=== PATIENT | female | born 1990 ===

== ENCOUNTER 2021-04-17 05:12 | Emergency (ER) | payer OTHER ==
[2021-04-17 06:11] VITALS: BP 128/77
[2021-04-17] MEDS ORDERED: KETOROLAC 30 MG/1 ML INJ IV ONE (06:24)
[2021-04-17] MEDS ORDERED: ONDANSETRON 4 MG/2 ML INJ IV ONE (06:24)
[2021-04-17] MEDS ORDERED: SODIUM CHLORIDE 0.9% 1000 ML 1,000 ML IV ONE (06:24)
--- NOTE | 2021-04-17 06:25 | Emergency Department Report ---
ED Abdominal Pain HPI - General Chief Complaint: Abdominal Pain Stated Complaint: ABD PAIN PUI?: No Time Seen by Provider: 04/17/21 06:14 Source: patient Mode of arrival: Ambulatory Limitations: No Limitations - History of Present Illness Initial Comments: 30-year-old female presents to the ER today with complaints of upper abdominal pain. Patient states that she has been having this pain off and on for the past 3 months but last night got severely worse. She states that the pain is now more epigastric and right upper quadrant. She states that last night she vomited twice and had 2 episodes of diarrhea but she has remained nauseous and she has felt dizzy off and on since last night. She is unable to describe any modifying factors. She denies any associated chest pain or shortness of breath. She denies any fever chills or UTI symptoms. She denies any abnormal vaginal symptoms. She states that she just had a baby 3 months ago and has not had a menstrual cycle as yet because she is breast-feeding. She states that she is concerned that this could be related to her gallbladder as her sister had similar symptoms. Only abdominal surgery she has had was a in the past. MD Complaint: abdominal pain -: Gradual, month(s) - Related Data Previous Rx's Medication Instructions Recorded Last Taken Type Ondansetron [Zofran Odt] 4 mg PO Q8HR #15 tab.rapdis 04/17/21 Unknown Rx traMADoL [Ultram] 50 mg PO Q4HR PRN #10 tablet 04/17/21 Unknown Rx Allergies Allergy/AdvReac Type Severity Reaction Status Date / Time No Known Allergies Allergy Verified 04/17/21 06:11 ED Review of Systems ROS: Stated complaint: ABD PAIN Other details as noted in HPI Comment: All other systems reviewed and negative Constitutional: denies: chills, fever Eyes: denies: eye pain, eye discharge, vision change ENT: denies: ear pain, throat pain Respiratory: denies: cough, shortness of breath, wheezing Cardiovascular: denies: chest pain, palpitations Gastrointestinal: abdominal pain, nausea, vomiting, diarrhea. denies: constipation, hematemesis, melena, hematochezia Genitourinary: denies: urgency, dysuria, frequency, hematuria, discharge, abnor mal menses, dyspareunia Musculoskeletal: denies: back pain, joint swelling, arthralgia Skin: denies: rash, lesions, change in color, change in hair/nails, pruritus Neurological: denies: headache, weakness, numbness, paresthesias, confusion, abnormal gait, vertigo Psychiatric: denies: anxiety, depression, auditory hallucinations, visual hallucinations, homicidal thoughts, suicidal thoughts Hematological/Lymphatic: denies: easy bleeding, easy bruising, swollen glands ED Past Medical Hx - Past Medical History Previous Medical History?: No - Surgical History Past Surgical History?: Yes Additional Surgical History: c section - Medications Home Medications: Home Medications Medication Instructions Recorded Confirmed Last Taken Type Ondansetron [Zofran Odt] 4 mg PO Q8HR #15 tab.rapdis 04/17/21 Unknown Rx traMADoL [Ultram] 50 mg PO Q4HR PRN #10 tablet 04/17/21 Unknown Rx ED Physical Exam - General Limitations: No Limitations General appearance: alert, in distress (MILD, SECONDARY TO PAIN) - Head Head exam: Present: atraumatic, normocephalic, normal inspection - Eye Eye exam: Present: normal appearance, PERRL, EOMI Pupils: Present: normal accommodation - Neck Neck exam: Present: normal inspection, full ROM. Absent: meningismus - Respiratory Respiratory exam: Present: normal lung sounds bilaterally. Absent: respiratory distress, wheezes, rales, rhonchi - Cardiovascular Cardiovascular Exam: Present: regular rate, normal rhythm, normal heart sounds - GI/Abdominal GI/Abdominal exam: Present: soft, tenderness (moderate RUQ with mild guarding and a positive Newman's). Absent: distended, rebound, rigid - Neurological Exam Neurological exam: Present: alert, oriented X3, CN II-XII intact, normal gait - Psychiatric Psychiatric exam: Present: normal affect, normal mood - Skin Skin exam: Present: intact ED Course Vital Signs 04/17/21 06:10 Temperature 97.6 F Pulse Rate 72 Respiratory 19 Rate Blood Pressure 128/77 [Left] O2 Sat by Pulse 99 Oximetry ED Medical Decision Making - Lab Data Result diagrams: 04/17/21 07:09 04/17/21 07:09 - Radiology Data Radiology results: report reviewed Patient: JAI HUNTER MR#: [id number] [birth year] : 1990 Acct:[id number] Age/Sex: 30 / F ADM Date: 04/17/21 Loc: ED Attending Dr: Ordering Physician: LISA ROJAS Date of Service: 04/17/21 Procedure(s): US abdomen limited Accession Number(s): [id number] cc: LISA ROJAS LIMITED RUQ ABDOMINAL ULTRASOUND INDICATION: RUQ abd pain. COMPARISON: No relevant prior imaging study available. FINDINGS: Pancreas: Visualized portions show no significant abnormality. Abdominal Aorta: Normal size. IVC: No significant abnormality. Liver: The liver measures 15.4 cm in length. Mildly echogenic appearance compared to the right renal cortex. Normal hepatopedal blood flow in the main portal vein. Gallbladder: Minimal layering cholelithiasis with no inflammatory change identified. Bile ducts: No significant abnormality. Common bile duct measures 2 mm. Right kidney: No significant abnormality visualized.. Free fluid: None. Additional Findings: None. IMPRESSION: 1. Echogenic appearance of the liver, most commonly seen with steatosis. 2. Cholelithiasis without cholecystitis. Signer Name: Edwin Johansen MD Signed: 04/17/2021 7:15 AM Workstation Name: [id number] Transcribed By: LONI Dictated By: Edwin Johansen MD Electronically Authenticated By: Edwin Johansen MD Signed Date/Time: 04/17/21714 DD/ 2 TD/TT: - Medical Decision Making 0903: Patient reports feeling much better after IV fluids, Zofran and Toradol. Repeat abdominal exam shows a soft nontender abdomen. She is currently sitting comfortably in the recliner. She is not toxic, ill-appearing and not in any significant distress. She is neurologically intact with a normal gait All labs reviewed --CBC unremarkable. CMP shows some elevations in her LFTs, but T bili and lipase are normal and the remainder of her CMP unremarkable. Gallbladder ultrasound does show cholelithiasis without any signs of acute cholecystitis. Common bile duct measured at 2 mm. There is also signs of hepatic steatosis. Patient elevated LFTs could be related to the gallstones and also hepatic steatosis. Given the fact that her pain is under control, she is afebrile, she is hemodynamically stable, and her white count is normal, patient will be discharged with instructions to follow-up general surgeon. I do not see an indication for CT abdomen pelvis, nor admission or emergent surgical consult at this time. Patient admits that she has been doing increased fatty foods think that this would help her milk production for her breast-feeding, but inform patient that she will need to decrease her fatty food intake, and a gallbladder eating plan was given to patient on discharge instructions. He was instructed to follow-up with a general surgeon and also the primary care doctor listed on her discharge instructions. Patient expressed understanding of all instructions and agree with plan. Patient stable at time of discharge. Critical care attestation.: If time is entered above; I have spent that time in minutes in the direct care of this critically ill patient, excluding procedure time. ED Disposition Clinical Impression: Cholelithiasis, Hepatic steatosis, Elevated LFTs Disposition: HOME / SELF CARE / HOMELESS Is pt being admited?: No Does the pt Need Aspirin: No Condition: Stable Instructions: Cholelithiasis, [id number], Gallbladder Eating Plan, Fatty Liver Disease, Abdominal Pain (ED) Additional Instructions: Recommend that he take Zofran as needed to help with any nausea or vomiting. Take the ultram to help with any pain as needed. You may want to adjust your breast-feeding cycles if you do take the ultram as this can cause some sleepiness. Recommend pumping before taking the medication or taking the medication after breast-feeding. Most importantly I do recommend that you follow the gallbladder eating plan to adjust your diet until you have your gallbladder removed. Follow-up with the general surgeon listed on your discharge instructions for further evaluation and discussion of possible gallbladder removal. I also recommend follow-up with primary care doctor for continued monitoring of your fatty liver and you elevated liver function tests. Return to the ER if your symptoms worsens and you develop uncontrolled nausea vomiting and fever chills with it. Prescriptions: traMADoL [Ultram] 50 mg PO Q4HR PRN #10 tablet PRN Reason: Pain , Severe (7-10) Ondansetron [Zofran Odt] 4 mg PO Q8HR #15 tab.rapdis Referrals: STEFANIE JASMINE DO [Staff Physician] - 3-5 Days (General Surgeon ) GUY CHANEL MD [Staff Physician] - 3-5 Days (Primary Care physician ) Time of Disposition: 08:57 Print Language: KYRGYZ
[2021-04-17 06:29] LABS: Bacteria,Urine 2+ /HPF (Negative); Bilirubin,Urine NEG (Negative); Blood,Urine NEG (Negative); Color,Urine Yellow (Yellow); Mucus,Urine 3+ /HPF; Protein,Urine <15 mg/dL mg/dL (Negative); Urobilinogen,Urine < 2.0 mg/dL (<2.0)
--- NOTE | 2021-04-17 07:19 | Ultrasound Report ---
LIMITED RUQ ABDOMINAL ULTRASOUND INDICATION: RUQ abd pain. COMPARISON: No relevant prior imaging study available. FINDINGS: Pancreas: Visualized portions show no significant abnormality. Abdominal Aorta: Normal size. IVC: No significant abnormality. Liver: The liver measures 15.4 cm in length. Mildly echogenic appearance compared to the right renal cortex. Normal hepatopedal blood flow in the main portal vein. Gallbladder: Minimal layering cholelithiasis with no inflammatory change identified. Bile ducts: No significant abnormality. Common bile duct measures 2 mm. Right kidney: No significant abnormality visualized.. Free fluid: None. Additional Findings: None. IMPRESSION: 1. Echogenic appearance of the liver, most commonly seen with steatosis. 2. Cholelithiasis without cholecystitis. Signer Name: Edwin Johansen MD Signed: 04/17/2021 7:15 AM Workstation Name: [id number]
[2021-04-17 08:14] LABS: Basophils % (Auto) 0.3 % (0.0-1.8); Eosinophils # (Auto) 0.1 K/mm3 (0.0-0.4); Eosinophils % (Auto) 1.2 % (0.0-4.3); Hematocrit 37.7 % (30.3-42.9); Hemoglobin 12.5 gm/dl (10.1-14.3); Lymphocytes # (Auto) 1.7 K/mm3 (1.2-5.4); Lymphocytes % (Auto) 17.8 % (13.4-35.0); Mean Corpuscular HGB Conc 33 % (30-34); Mean Corpuscular Volume 82 fl (79-97); Monocytes # (Auto) 0.7 K/mm3 (0.0-0.8); Monocytes % (Auto) 7.5 % (0.0-7.3); Platelet Count 281 K/mm3 (140-440); Red Blood Count 4.61 M/mm3 (3.65-5.03); Red Cell Distribution Width 13.7 % (13.2-15.2)
[2021-04-17 08:35] LABS: Alanine Aminotransferase 94 units/L (7-56); Albumin 4.5 g/dL (3.9-5); Bilirubin,Direct 0.3 mg/dL (0-0.2); Blood Urea Nitrogen 11 mg/dL (7-17); Calcium 9.6 mg/dL (8.4-10.2); Hemolysis Index 18
[2021-04-17 08:47] LABS: BUN/Creatinine Ratio 22
== END 2021-04-17 09:05 | disposition home or self-care (01) ==
LOC: ED 05:12
DX: K80.20 Calculus of gallbladder without cholecystitis without obstruction (principal); K76.0 Fatty (change of) liver, not elsewhere classified; R94.5 Abnormal results of liver function studies
CPT/HCPCS: 36415; 76705; 80048; 80076; 81001; 83690; 84703; 85025; 96361; 96374; 96375; 99284; J1885; J2405; J7030; Q0162

== ENCOUNTER 2021-05-19 05:55 | Day surgery (SDC) | payer OTHER ==
[2021-05-19] MEDS ORDERED: LACTATED RINGERS 1,000 ML IV SCH (06:00)
[2021-05-19] MEDS ORDERED: SCOPOLAMINE TRANSDERMAL PATCH 72 HR TD NR (06:00)
[2021-05-19] MEDS ORDERED: GABAPENTIN 300 MG CAP PO NR (06:00)
[2021-05-19] MEDS ORDERED: MIDAZOLAM 2 MG/2 ML INJ IV NR (06:00)
[2021-05-19] MEDS ORDERED: ACETAMINOPHEN 500 MG TAB PO SCH (06:00)
--- NOTE | 2021-05-19 07:20 | Anesthesia Consultation ---
Anesthesia Consult and Med Hx Date of service: 05/19/21 - Airway Anesthetic Teeth Evaluation: Good ROM Head & Neck: Adequate Mental/Hyoid Distance: Adequate Mallampati Class: Class II Intubation Access Assessment: Probably Good - Pre-Operative Health Status ASA Pre-Surgery Classification: ASA2 Proposed Anesthetic Plan: General - Pulmonary Hx Smoking: No Hx Sleep Apnea: No (LISA PRE SCREEN LOW RISK) - Cardiovascular System Hx Hypertension: No - Central Nervous System Hx Psychiatric Problems: No - Endocrine Hx Liver Disease: Yes (Gallbladder disease with h/o elevated liver enzymes) - Hematic Hx Anemia: No Hx Sickle Cell Disease: No - Other Systems Hx Alcohol Use: Yes (OCC. BEER) Hx Substance Use: No Hx Cancer: No - Additional Comments Anesthesia Medical History Comments: Gave 4 month ago.
--- NOTE | 2021-05-19 07:21 | Anesthesia Day of Surgery ---
Anesthesia Day of Surgery - Day of Surgery Patient Examined: Yes Patient H&P Reviewed: Yes Patient is NPO: Yes
[2021-05-19] MEDS ORDERED: ceFAZolin/Water 2 GM/20 ML 2 GM/20 ML SYRINGE IV ONE (07:22)
[2021-05-19] MEDS ORDERED: propofoL 200 MG/20 ML VIAL IV ONE (07:26)
[2021-05-19] MEDS ORDERED: HYDROmorphone 1 MG/1 ML INJ ONE (07:26)
[2021-05-19] MEDS ORDERED: LIDOCAINE MPF (2%) 20 MG/1 ML VIAL 5 ML ONE (07:27)
[2021-05-19] MEDS ORDERED: HYDROcodone/ACETAMINOPHEN 5-325 MG TAB PO PRN (07:27)
[2021-05-19] MEDS ORDERED: ONDANSETRON 4 MG/2 ML INJ IV PRN (07:27)
[2021-05-19] MEDS ORDERED: ROCURONIUM 50 MG/5 ML INJ IV ONE (07:27)
[2021-05-19] MEDS ORDERED: LIDOCAINE (1%) 10 MG/1 ML VIAL 20 ML MDV ONE (07:34)
[2021-05-19] MEDS ORDERED: BUPIVACAINE/PF (0.5%) 5 MG/1 ML 30 ML VIAL INFILTRATI ONE ×2 (07:35→09:26)
[2021-05-19] MEDS ORDERED: ceFAZolin/STERILE WATER 2 GM/20 ML SYRINGE IV NR (07:45)
[2021-05-19] MEDS ORDERED: FAMOTIDINE 20 MG/2 ML INJ IV NR (08:00)
[2021-05-19] MEDS ORDERED: dexAMETHasone 20 MG/5 ML VIAL ONE (08:35)
[2021-05-19] MEDS ORDERED: LIDOCAINE (1%) 10 MG/1 ML VIAL 20 ML MDV INFILTRATI ONE (09:26)
[2021-05-19] MEDS ORDERED: WATER FOR IRRIG STERILE 1,500 ML BOTTLE IR ONE (09:27)
[2021-05-19] MEDS ORDERED: NEOSTIGMINE 10MG/10 ML INJ MDV ONE (09:52)
[2021-05-19] MEDS ORDERED: GLYCOPYRROLATE 0.4 MG/2 ML INJ ONE (09:52)
[2021-05-19] MEDS ORDERED: KETOROLAC 30 MG/1 ML INJ ONE (09:53)
[2021-05-19] MEDS ORDERED: ONDANSETRON 4 MG/2 ML INJ ONE (09:53)
[2021-05-19] MEDS: HYDROmorphone 1 MG/1 ML INJ IV PRN ×4 (10:18→10:49)
--- NOTE | 2021-05-19 10:36 | Short Stay Summary ---
Short Stay Documentation - History Principal diagnosis: Symptomatic cholelithiasis H&P: obtained from office - Allergies and Medications Current Medications: Allergies No Known Allergies Allergy (Verified 04/17/21 06:11) Home Medications Medication Instructions Recorded Confirmed Last Taken Type Vit-Fe Fumar-FA [ 1 tab PO QDAY 05/06/21 05/06/21 Unknown History Vitamin] Active Medications Acetaminophen (Acetaminophen 500 Mg Tab) 1,000 mg PO PREOP JENNIFER Last Admin: 05/19/21 07:05 Dose: 1,000 mg Hydrocodone Bitart/Acetaminophen (Hydrocodone/Acetaminophen 5-325 Mg Tab) 2 each PO ONCE PRN PRN Reason: Pain, Moderate (4-6) Cefazolin Sodium (Cefazolin/Sterile Water 2 Gm/20 Ml Syringe) 2 gm IV PREOP NR Stop: 05/20/21 07:44 Famotidine (Famotidine 20 Mg/2 Ml Inj) 20 mg IV PREOP NR Stop: 05/19/21 23:00 Last Admin: 05/19/21 07:35 Dose: 20 mg Gabapentin (Gabapentin 300 Mg Cap) 300 mg PO PREOP NR Stop: 05/19/21 23:59 Last Admin: 05/19/21 07:05 Dose: 300 mg Hydromorphone HCl (Hydromorphone 1 Mg/1 Ml Inj) 0.5 mg IV Q10MIN PRN PRN Reason: Pain , Severe (7-10) Stop: 05/20/21 07:26 Last Admin: 05/19/21 10:29 Dose: 0.5 mg Lactated Ringer's (Lactated Ringers) 1,000 mls @ 100 mls/hr IV DIRECT JENNIFER Stop: 05/19/21 23:59 Last Admin: 05/19/21 07:10 Dose: 100 mls/hr Midazolam HCl (Midazolam 2 Mg/2 Ml Inj) 2 mg IV PREOP NR Stop: 05/19/21 23:59 Last Admin: 05/19/21 07:30 Dose: 2 mg Ondansetron HCl (Ondansetron 4 Mg/2 Ml Inj) 4 mg IV ONCE PRN PRN Reason: Nausea And Vomiting Scopolamine (Scopolamine Transdermal Patch 72 Hr) 1 each TD PREOP NR Stop: 05/19/21 23:59 Last Admin: 05/19/21 07:20 Dose: 1 each - Brief post op/procedure progress note Date of procedure: 05/19/21 Pre-op diagnosis: Symptomatic cholelithiasis Post-op diagnosis: same Procedure: Robotic assisted cholecystectomy Anesthesia: GETA, local Findings: Distended gallbladder Surgeon: STEFANIE JASMINE (Karrie ESPINOSA) Estimated blood loss: minimal Pathology: list (Gallbladder) Specimen disposition: to lab Condition: stable - Hospital course Hospital course: Patient observed in PACU and discharged home in stable condition when criteria met - Disposition Condition at discharge: Good Disposition: 01 HOME / SELF CARE / HOMELESS Short Stay Discharge Plan Activity: other (No heavy lifting for the next 1 week) Diet: low fat Wound: open to air, per your surgeon's advice Additional Instructions: See printed discharge instructions Follow up with: STEFANIE JASMINE DO [Staff Physician] - 14 Days Prescriptions: oxyCODONE /ACETAMINOPHEN [Percocet 5/325] 1 tab PO Q6HR PRN #10 tablet PRN Reason: Pain , Severe (7-10)
[2021-05-19 11:29] VITALS: BP 146/95
--- NOTE | 2021-05-19 14:24 | Post Anesthesia Evaluation ---
- Post Anesthesia Evaluation Patient Participated: Yes Airway Patent: Yes Stable Respiratory Function: Yes Nausea/Vomiting: No Temp > 96.8F: Yes Pain Manageable: Yes Adequeate Hydration: Yes Anesthesia Complications: No
--- NOTE | 2021-05-21 13:57 | Operative Report ---
Operative Report Operative Report: Date of procedure: 05/19/21 Pre-op diagnosis: Symptomatic cholelithiasis Post-op diagnosis: same Procedure: Robotic assisted cholecystectomy Anesthesia: GETA, local Findings: Distended gallbladder Surgeon: STEFANIE JASMINE Tandem Mill Operator: Karrie ESPINOSA Estimated blood loss: minimal Pathology: list (Gallbladder) Specimen disposition: to lab Condition: stable Hospital course: Patient observed in PACU and discharged home in stable condition when criteria met Condition at discharge: Good Disposition: 01 HOME / SELF CARE / HOMELESS HPI an indication: 30-year-old female who presented to the surgery clinic with complaints of intermittent sharp right upper quadrant abdominal pain. Patient found to have stones in the gallbladder without evidence of cholecystitis or biliary ductal dilatation. Her symptoms were believed to be associated with symptomatic cholelithiasis. It was recommended that the patient undergo cholecystectomy. All risks, benefits, alternatives to surgery were discussed in detail and questions answered. Consent was obtained for robotic assisted laparoscopic, possible open cholecystectomy, possible cholangiogram. Procedure in detail: The patient was identified in the preoperative area and taken back to the operating room, placed on the operating room table in supine position. After anesthesia was induced, the abdomen was prepped and draped in usual sterile fashion and timeout was performed. Local anesthetic was infiltrated into all of the skin incision sites. A jayro incision was made in the left upper quadrant at Jacques's point through which a Veress needle was inserted. The Veress needle positioning was confirmed using saline drop test and the abdomen insufflated to 15 mmHg without incident. A supra umbilical incision was made through which a 5 mm Optiview trocar was placed. The abdomen was inspected and there was no underlying injury to the abdominal structures. The Veress needle was removed. An 8 mm robotic trocar was placed in the right upper abdomen, and the left lower abdomen, and in the left lateral abdomen all under direct visualization. The 5 mm supraumbilical trocar was removed and rep laced with a 12 mm balloon trocar under direct visualization. The patient was placed in reverse Trendelenburg and tilted to the left. The robot was then docked. A monopolar hook was placed in arm #1, a caudier grasper in arm #2, and a prograsp in arm #3. The surgeon was then transferred to the console. The gallbladder was moderately distended. It was grasped and retracted cephalad and above the liver. The cystic duct and artery were carefully skeletonized. The medial and lateral peritoneal attachments to the gallbladder were dissected using a combination of blunt dissection and hook electrocautery. The cystic duct and artery were the only 2 structures seen entering the gallbladder and the critical view was successfully obtained. 2 hemolock clips were placed on the proximal aspect of the cystic duct and 1 distally, and 1 hemolock clip was placed on the proximal aspect of the cystic artery and 1 distally. Both structures were transected in between the clips using EndoShears by the railway yard assistant. The gallbladder was dissected from the liver bed using electrocautery. Once completely dissected it was placed into the right upper quadrant and the liver bed was examined for hemostasis. This was very carefully ensured. The clips were visualized and intact. There was no bleeding or bile leakage. The robot was then undocked and the surgeon scrubbed back in. The remainder of the case was performed laparoscopically. The gallbladder was placed into a Endo Catch bag and removed from the abdomen via the 12mm port. The 12 mm port fascia was closed with interrupted 0 Vicryl suture using the Darell Salas device. The remaining ports were removed under direct visualization. Skin incisions were closed with 4-0 Monocryl subcuticular stitches and skin glue. All skin incisions were once again infiltrated with local anesthetic. At the end case all sponge, instrument, sharp counts were correct 2. The patient was awoken from anesthesia, extubated, and taken to PACU in stable condition.
== END 2021-05-19 11:40 | disposition home or self-care (01) ==
LOC: OR 05:55
PROVIDERS: ATTEND Surgery
DX: K80.10 Calculus of gallbladder with chronic cholecystitis without obstruction (principal); Z20.822 Contact with and (suspected) exposure to COVID-19; Z79.899 Other long term (current) drug therapy; Z98.891 History of uterine scar from previous surgery; Z98.890 Other specified postprocedural states; Z72.89 Other problems related to lifestyle
CPT/HCPCS: 47562; 81025; 88304; J0690; J1100; J1170; J1815; J1885; J2250; J2405; J2704; J2710; J3490; J7120; S2900; U0003